=== PATIENT | female | born 1955 | race Caucasian/White ===

== ENCOUNTER → 2018-07-09 | Outpatient (CLI) | payer OTHER ==
[~2018-07-09] MED LIST: ALBUTEROL2.5 MG/31 IH; BLOOD PRESSURE MED; COLESTEROL MED; DULERA 200 MCG/13 GM IH; MEDROLDOSEPACK PO; SPIRIVA INH; VENTOLIN17 GM INH
--- NOTE | 2018-07-10 20:04 | SLEEP ---
[address] [address] SLEEP STUDY REPORT Name: FRED SMITH Room: [facility]#: [id number] Admission: 07/09/18 Attend Phys: Fernando Morales MD Discharge: Date of : 59 Report #: [id number] THIS REPORT FOR: //name// CC: John Morales MD This study has been reviewed in its entirety by a board certified sleep specialist DATE OF SERVICE: 07/09/2018 SLEEP STUDY ATTENDING PHYSICIAN: Fernando Morales MD. The patient a 63-year-old who weighs 200 pounds and is 65 inches tall with a BMI of 33. The patient's Middleton score was 4. The patient was referred to [facility] for BiPAP titration study. The patient is on home CPAP and also uses 3 liters of oxygen bleed in. The patient has overlap syndrome with COPD. During the night study, the patient spent 446 minutes in bed and slept for 318 minutes with a sleep efficiency of 71%. Sleep latency was 41.5 minutes with a REM latency of 216 minutes. Overall, sleep architecture showed normal stage I and stage 2 sleep, normal slow wave and increased REM sleep, which was 31% of total sleep time. EKG monitoring revealed an average heart rate of 68 beats per minute. No sustained arrhythmias were observed. PLMS were seen at the index of 84 per hour and 17.5 per hour caused EEG arousals. The patient was started on BiPAP at a pressure of 12/6. The pressure was gradually increased to eliminate apneas, hypopneas as well as snoring. The patient did well at a BiPAP pressure of 19/14 with an AHI of 0.8 per hour; however, the patient had no supine sleep at that pressure. At a final pressure of 21/15, the patient slept for 98 minutes. The patient has 81 minutes of REM sleep. The patient has supine sleep as well. The patient's AHI was reduced to 1.2 per hour and oxygen saturation remained above 88% with one spot desaturation of 86%. IMPRESSION: 1. Sleep apnea diagnosed previously. 2. Severe [place] [address] SLEEP STUDY REPORT Name: FRED SMITH Room: [facility]#: [id number] Admission: 07/09/18 Attend Phys: Fernando Morales MD Discharge: Date of : 59 Report #: [id number] RECOMMENDATIONS: 1. BiPAP at 21/15 completely eliminated the patient's sleep apnea and should be used on a nightly basis. The patient did not require supplemental oxygen. 2. Follow up in 4-6 weeks to assess compliance with BiPAP and to document clinical improvement. 3. Weight loss is strongly advised. 4. Avoid [employer] depressants. 5. Cautioned regarding driving until symptoms of sleep apnea resolve with the use of CPAP. 6. Regarding PLMS, the patient can be treated with dopaminergic agonist agents if the patient is clinically symptomatic. The patient should also be further evaluated for symptoms of restless legs during the day. <ELECTRONICALLY SIGNED> By: Casa Dodd MD 07/10/18 2004 [id number] Javan Dodd MD /nt
== END ==
LOC: M.SLEEPLAB 06-11 21:00
DX: G47.33 Obstructive sleep apnea (adult) (pediatric) (principal); J44.9 Chronic obstructive pulmonary disease, unspecified; G47.61 Periodic limb movement disorder